=== PATIENT | male | born 1945 ===

== ENCOUNTER 2018-05-11 15:03 | Outpatient (CLI) | payer OTHER ==
[~2018-05-11 15:03] MED LIST: FOLIC ACID1 MG PO; LISINOPRIL20 MG PO; MINUS WEIGHT P1 EACH PO; SIDEROL TABLET1 EACH PO
== END 2018-05-11 15:04 | disposition home or self-care (01) ==
LOC: LAB 15:03
DX: D64.89 Other specified anemias (principal); D68.8 Other specified coagulation defects

== ENCOUNTER 2018-05-17 06:07 | Outpatient (CLI) | payer OTHER | END 2018-05-17 06:13 | disposition home or self-care (01) | LOC: LAB 06:07 | DX: D50.0 Iron deficiency anemia secondary to blood loss (chronic) (principal); K64.8 Other hemorrhoids; D68.32 Hemorrhagic disorder due to extrinsic circulating anticoagulants; D69.59 Other secondary thrombocytopenia; I10 Essential (primary) hypertension; D51.1 Vitamin B12 deficiency anemia due to selective vitamin B12 malabsorption with proteinuria; D51.0 Vitamin B12 deficiency anemia due to intrinsic factor deficiency; D68.8 Other specified coagulation defects ==

== ENCOUNTER 2018-06-05 05:31 | Day surgery (SDC) | payer OTHER ==
[2018-06-05] MEDS ORDERED: PERCOCET 5-3251 EACH PO (08:47)
[2018-06-05] MEDS ORDERED: RECTICARE30 GM TOP (08:47)
== END 2018-06-05 20:00 | disposition home or self-care (01) ==
LOC: CIR.AMB 05:31
DX: K64.4 Residual hemorrhoidal skin tags (principal); K64.3 Fourth degree hemorrhoids